=== PATIENT | female | born 1990 | race Caucasian/White ===

== ENCOUNTER 2016-11-01 14:38 | Emergency (ER) | payer OTHER ==
[2016-11-01 17:14] LABS: BLOOD UREA NITROGEN 12 mg/dL (7-18); CALCIUM 9.4 mg/dL (8.7-10.7); CARBON DIOXIDE 21 mmol/L (21-32); CREATININE 0.8 mg/dL (0.6-1.3); GLUCOSE,RANDOM 113 mg/dL (70-99); POTASSIUM 4.5 mmol/L (3.5-5.1); SODIUM 141 mmol/L (136-145)
== END 2016-11-01 18:06 | disposition home or self-care (01) ==
LOC: ER 14:38
PROVIDERS: General Practice
DX: G43.909 Migraine, unspecified, not intractable, without status migrainosus (principal); R11.2 Nausea with vomiting, unspecified; Z82.49 Family history of ischemic heart disease and other diseases of the circulatory system; Z88.1 Allergy status to other antibiotic agents
CPT/HCPCS: 36415; 80048; 96361; 96374; 96375; 99070; 99284-25; J2765

== ENCOUNTER 2016-11-29 19:48 | Emergency (ER) | payer OTHER | END 2016-11-29 22:49 | disposition home or self-care (01) | LOC: ER 19:48 | DX: G43.909 Migraine, unspecified, not intractable, without status migrainosus (principal); F17.210 Nicotine dependence, cigarettes, uncomplicated; Z88.0 Allergy status to penicillin | CPT/HCPCS: 96374; 99070; 99283-25; J2765; J7040 ==

== ENCOUNTER 2017-01-16 14:48 | Emergency (ER) | payer OTHER | END 2017-01-16 19:31 | disposition home or self-care (01) | LOC: ER 14:48 | DX: R51 Headache (principal); F17.210 Nicotine dependence, cigarettes, uncomplicated; Z88.0 Allergy status to penicillin; Z88.1 Allergy status to other antibiotic agents | CPT/HCPCS: 96372; 99283-25 ==